=== PATIENT | female | born 1945 | race Caucasian/White ===

== ENCOUNTER 2019-12-01 10:43 | Emergency (ER) | payer MEDICARE ==
[2019-12-01 11:06] VITALS: TEMP 97.9
[2019-12-01 12:04] LABS: Basophils # (A) 0.1 k/uL (0-0.2); Basophils % (A) 1 %; Eosinophils # (A) 0.1 k/uL (0-0.7); Eosinophils % (A) 2 %; HGB 13.8 gm/dL (11.4-16.0); Lymphocytes # (A) 1.3 k/uL (1.0-4.8); Lymphocytes % (A) 18 %; MCH 28.1 pg (25.0-35.0); MCV 87.9 fL (80.0-100.0); Mean Platelet Volume 8.2; Monocytes # (A) 0.4 k/uL (0-1.0); Monocytes % (A) 6 %; Neutrophils # (A) 5.1 k/uL (1.3-7.7); Neutrophils % (A) 72 %; Platelet Count 230 k/uL (150-450); RBC 4.89 m/uL (3.80-5.40); RDW 13.2 % (11.5-15.5); WBC 7.1 k/uL (3.8-10.6)
--- NOTE | 2019-12-01 12:07 | XR ---
EXAMINATION TYPE: XR chest 1V DATE OF EXAM: 12/01/2019 COMPARISON: NONE HISTORY: Cough and congestion TECHNIQUE: Single frontal view of the chest is obtained. FINDINGS: There is interstitial prominence throughout. Pulmonary hyperinflation likely on the basis of underlying COPD. Cardiomediastinal silhouette is upper limits of normal size. Diffuse osseous kinsey neralization. No pneumothorax or sizable pleural effusion. IMPRESSION: Diffuse interstitial prominence that can be on the basis of atypical pneumonia, bronchit is or less likely fluid overload. Underlying COPD suspected.
[2019-12-01 12:14] LABS: Calcium 9.6 mg/dL (8.4-10.2); Potassium 4.5 mmol/L (3.5-5.1); Total Bilirubin 0.5 mg/dL (0.2-1.3); Total Protein 7.2 g/dL (6.3-8.2)
--- NOTE | 2019-12-01 12:15 | ED ---
SOB HPI - General Chief Complaint: Shortness of Breath Stated Complaint: SOB Time Seen by Provider: 12/01/19 11:20 Source: patient Mode of arrival: ambulatory Limitations: no limitations - History of Present Illness Initial Comments: 74-year-old female presenting for cough shortness of breath. Patient states she has felt like she has a chest cold for the past few days. Patient was concerned that she had contracted Cvid 19 she states she has no known exposures. Patient denies hemoptysis, leg swelling, recent travel, recent surgeries, hormone use, history of cancer, DVT/PE. Patient denies chest pressure, chest pain, pain with deep inspiration. Patient denies sore throat, fevers, vomiting, diarrhea, abdominal pain. Denies history of HTN, DM. Lifelong nonsmokers. Patient denies HLD. Patient has no other complaints. Upon arrival she appears well in no distress. - Related Data Previous Rx's Medication Instructions Recorded Azithromycin [Zithromax Z-pack] 0 mg PO DIRECTED #6 tab 12/01/19 Allergies Allergy/AdvReac Type Severity Reaction Status Date / Time nickel Allergy Rash/Hives Verified 12/01/19 11:06 Sulfa (Sulfonamide Allergy Rash/Hives Verified 12/01/19 11:06 Antibiotics) Review of Systems ROS Statement: Those systems with pertinent positive or pertinent negative responses have been documented in the HPI. ROS Other: All systems not noted in ROS Statement are negative. Past Medical History Past Medical History: No Reported History History of Any Multi-Drug Resistant Organisms: None Reported Additional Past Surgical History / Comment(s): cataracts Past Psychological History: No Psychological Hx Reported Smoking Status: Never smoker Past Alcohol Use History: None Reported Past Drug Use History: None Reported General Exam - General Exam Comments Initial Comments: General: The patient is awake and alert, in no distress Eye: +3 mm pupils are equal, round and reactive to light, extra-ocular movements are intact. No nystagmus. There is normal conjunctiva bilaterally. No signs of icterus. No photophobia Ears, nose, mouth and throat: There are moist mucous membranes and no oral lesions.No anterior cervical lymphadenopathy. Rhinorrhea, clear and bilateral nares. No tripoding, no drooling. Neck: The neck is supple, there is no tenderness or JVD. No nuchal rigidity Cardiovascular: There is a regular rate and rhythm. No murmur, rub or gallop is appreciated. Respiratory: Lungs are clear to auscultation, respirations are non-labored, breath sounds are equal. No wheezes, stridor, rales, or rhonchi. No retractions or abdominal breathing. Gastrointestinal: Soft, non-distended, non-tender abdomen without masses or organomegaly noted. There is no rebound or guarding present. Bowel sounds are unremarkable. Musculoskeletal: Normal ROM, no tenderness. Strength 5/5. Sensation intact. Radial pulses equal bilaterally 2+. Neurological: A&O x 3. CN II-XII intact grossly, There are no obvious motor or sensory deficits. Coordination appears grossly intact. Speech appears normal, no muffling. Skin: Skin is warm and dry and no rashes or lesions are noted. No extremity edema Psychiatric: Cooperative Limitations: no limitations Course Vital Signs 12/01/19 12/01/19 12/01/19 11:03 12:00 13:00 Temperature 97.9 F Pulse Rate 100 81 79 Respiratory 18 17 16 Rate Blood Pressure 154/68 129/68 123/64 O2 Sat by Pulse 99 97 97 Oximetry Medical Decision Making - Medical Decision Making 74yo female presenting today for cc of shortness of breath, cough. CXR reveals findings consistent with possible developing atypical pneumonia. BNP within acceptable limits. No extremity findings. Patient appears well there is no signs of acute distress. Patient denies chest pain. Oxygenating well on room air. EKG nonspecific findings reviewed with attending. At this time after discussing case with Dr. Medina--reviewing VS, EKG, labs, history we feel patient is stable for discharge with PCP f/u and strict return parameters. Patient is agreeable and prefers discharge will be discharged with azithromycin. Discussed self isolation as we cannot rule out Covid 19 infection. - Lab Data Result diagrams: 12/01/19 11:45 12/01/19 11:45 Lab Results 12/01/19 12/01/19 12/01/19 Range/Units 11:45 11:45 11:45 WBC 7.1 (3.8-10.6) k/uL RBC 4.89 (3.80-5.40) m/uL Hgb 13.8 (11.4-16.0) gm/dL Hct 43.0 (34.0-46.0) % MCV 87.9 (80.0-100.0) fL MCH 28.1 (25.0-35.0) pg MCHC 32.0 (31.0-37.0) g/dL RDW 13.2 (11.5-15.5) % Plt Count 230 (150-450) k/uL Neutrophils % 72 % Lymphocytes % 18 % Monocytes % 6 % Eosinophils % 2 % Basophils % 1 % Neutrophils # 5.1 (1.3-7.7) k/uL Lymphocytes # 1.3 (1.0-4.8) k/uL Monocytes # 0.4 (0-1.0) k/uL Eosinophils # 0.1 (0-0.7) k/uL Basophils # 0.1 (0-0.2) k/uL Sodium 138 (137-145) mmol/L Potassium 4.5 (3.5-5.1) mmol/L Chloride 107 (98-107) mmol/L Carbon Dioxide 23 (22-30) mmol/L Anion Gap 8 mmol/L BUN 15 (7-17) mg/dL Creatinine 0.75 (0.52-1.04) mg/dL Est GFR (CKD-EPI)AfAm 90 (>60 ml/min/1.73 sqM) Est GFR (CKD-EPI)NonAf 78 (>60 ml/min/1.73 sqM) Glucose 103 H (74-99) mg/dL Plasma Lactic Acid Thierry 1.0 (0.7-2.0) mmol/L Calcium 9.6 (8.4-10.2) mg/dL Total Bilirubin 0.5 (0.2-1.3) mg/dL AST 29 (14-36) U/L ALT 22 (4-34) U/L Alkaline Phosphatase 99 (38-126) U/L NT-Pro-B Natriuret Pep pg/mL Total Protein 7.2 (6.3-8.2) g/dL Albumin 4.0 (3.5-5.0) g/dL 12/01/19 Range/Units 11:45 WBC (3.8-10.6) k/uL RBC (3.80-5.40) m/uL Hgb (11.4-16.0) gm/dL Hct (34.0-46.0) % MCV (80.0-100.0) fL MCH (25.0-35.0) pg MCHC (31.0-37.0) g/dL RDW (11.5-15.5) % Plt Count (150-450) k/uL Neutrophils % % Lymphocytes % % Monocytes % % Eosinophils % % Basophils % % Neutrophils # (1.3-7.7) k/uL Lymphocytes # (1.0-4.8) k/uL Monocytes # (0-1.0) k/uL Eosinophils # (0-0.7) k/uL Basophils # (0-0.2) k/uL Sodium (137-145) mmol/L Potassium (3.5-5.1) mmol/L Chloride (98-107) mmol/L Carbon Dioxide (22-30) mmol/L Anion Gap mmol/L BUN (7-17) mg/dL Creatinine (0.52-1.04) mg/dL Est GFR (CKD-EPI)AfAm (>60 ml/min/1.73 sqM) Est GFR (CKD-EPI)NonAf (>60 ml/min/1.73 sqM) Glucose (74-99) mg/dL Plasma Lactic Acid Thierry (0.7-2.0) mmol/L Calcium (8.4-10.2) mg/dL Total Bilirubin (0.2-1.3) mg/dL AST (14-36) U/L ALT (4-34) U/L Alkaline Phosphatase (38-126) U/L NT-Pro-B Natriuret Pep 424 pg/mL Total Protein (6.3-8.2) g/dL Albumin (3.5-5.0) g/dL - EKG Data EKG Comments: Ventricular rate 90 bpm, OR interval 142 ms, QRS laceration 82 ms, QT/QTC 390/477 ms. This is normal sinus. There issignificant ST elevation or depression there is nonspecific T wave changes. EKG personally reviewd with attending provider. Disposition Clinical Impression: Cough, SOB (shortness of breath), Pneumonia Disposition: HOME SELF-CARE Condition: Good Instructions (If sedation given, give patient instructions): Viral Pneumonia (ED) Additional Instructions: Please use medication as discussed. Please follow-up with family doctor in the next 2 days, SELF ISOLATION FOR THE NEXT 14 days. Please return to emergency room if the symptoms increase or worsen or for any other concerns-immediate return for increasing SOB. Prescriptions: Azithromycin [Zithromax Z-pack] 0 mg PO DIRECTED #6 tab Is patient prescribed a controlled substance at d/c from ED?: No Referrals: Teena Astorga MD [Primary Care Provider] - 1-2 days Time of Disposition: 13:34
[2019-12-01 13:05] VITALS: BP 123/64; PULSE 79; RESP 16
== END 2019-12-01 13:58 | disposition home or self-care (01) ==
LOC: EC 10:43
DX: J18.9 Pneumonia, unspecified organism (principal); Z88.2 Allergy status to sulfonamides; Z91.048 Other nonmedicinal substance allergy status; Z20.828 Contact with and (suspected) exposure to other viral communicable diseases
CPT/HCPCS: 36415; 71045; 80053; 83605; 83880; 85025; 87040; 93005; 99285

== ENCOUNTER → 2021-11-01 | Outpatient (CLI) | payer MEDICARE ==
--- NOTE | 2021-11-01 10:03 | CT ---
EXAMINATION TYPE: CT urogram wo/w con DATE OF EXAM: 11/01/2021 INDICATION: neoplasm of rt ureter CT DLP: 1049.0 mGy.cm Automated Exposure Control for Dose Reduction was Utilized. TECHNIQUE AND CONTRAST: CT scan of the abdomen and pelvis is performed without and with IV Contrast, patient injected with 10 0mL mL of Isovue 300. 3-D urogram reconstructed images were performed on a separate workstation and r eviewed. COMPARISON: None available FINDINGS: 2 tiny adjacent nonobstructing calculi at the lower pole of the right kidney each measuring 2 mm. The left kidney demonstrates multiple variable sized nonobstructing calculi seen at the upper, mid and l ower poles, measuring up to 3 mm at the upper pole and 3 mm at the lower pole. No definite radiodense ureteric or urinary bladder calculi. Scattered bilateral renal cysts without suspicious feature mirian uring up to 4.4 cm at the upper pole of right kidney. Mild wall thickening of the proximal portion of the right ureter extending for about 15 mm which coul d be related to the known right ureteric neoplasm. No measurable lesion identified otherwise. There i s mild fullness of the right renal collecting system. The inferior aspect of the left ureter is not o pacified in the urogram images. No other definite filling defects are seen within the renal collectin g system or the opacified portions of the ureters. Grossly unremarkable urinary bladder. Unremarkable liver, gallbladder, spleen, pancreas and adrenals. Scattered arterial atherosclerotic ca lcifications. Unremarkable IVC. Unremarkable stomach, duodenum and small bowel. Scattered uncomplicat ed colonic diverticulosis most evident involving the sigmoid colon. Normal appendix. Small uterus wit h tiny calcification and 7 mm endometrial thickness, please correlate with pelvic ultrasound results. No gross adnexal mass. No suspicious lymphadenopathy or sizable ascites. Bilateral basal pulmonary p eripheral reticulations and subsegmental atelectasis. Osteopenia. No aggressive bone lesion. Severe d egenerative changes of the right hip joint. Degenerative changes of the lumbar spine. IMPRESSION: Bilateral subcentimeter renal calculi and simple renal cysts as described above. Mild wall thickening of the proximal portion of the right ureter, nonspecific and could be related to the known right ure teric neoplasm. No measurable ureteric lesion identified. Mild fullness of the right renal collecting system, probably secondary to the right ureteric wall thickening. Recommend correlation with urinaly sis results including cytology. Other incidental findings as described above.
== END | disposition home or self-care (01) ==
LOC: RADCTMAIN 07:51
PROVIDERS: ATTEND Urology
DX: N20.0 Calculus of kidney (principal); N28.1 Cyst of kidney, acquired; N28.89 Other specified disorders of kidney and ureter
CPT/HCPCS: 82565; 84520; 74178; 36415; 74400; Q9967

== ENCOUNTER → 2022-07-06 | Outpatient (CLI) | payer MEDICARE ==
[2022-07-06 17:28] LABS: INR 0.9 (<1.2); Partial Thromboplastin Time 23.6 sec (22.0-30.0); Prothrombin Time 10.3 sec (9.0-12.0)
[2022-07-06 22:31] LABS: HCT 40.8 % (37.2-46.3); MCH 28.1 pg (27.0-32.0); MCHC 31.9 g/dL (32.0-37.0); MCV 88.3 fL (80.0-97.0); Mean Platelet Volume 10.6 fL (9.5-12.2); NRBC Per 100 WBC 0 /100 WBCS (0.0-0.0); Platelet Count 263 X 10*3/uL (140-440); RBC 4.62 X 10*6/uL (4.10-5.20); RDW 13.5 % (11.5-14.5); WBC 6.95 X 10*3/uL (4.50-10.00)
[2022-07-06 22:53] LABS: African American GFR (CKD) 73.1 (60.0-200.0); Albumin/Globulin Ratio 1.52 (1.60-3.17); Anion Gap 9.5 mmol/L (10.00-18.00); BUN/Creat Ratio 13.4 Ratio (12.00-20.00); Blood Urea Nitrogen 11.7 mg/dL (9.0-27.0); Calcium 9.4 mg/dL (8.7-10.3); Carbon Dioxide 25.7 mmol/L (20.0-27.5); Globulin 2.7 g/dL (1.6-3.3); Non-African American GFR(CKD) 63.1 (60.0-200.0); Potassium 4.4 mmol/L (3.5-5.5); Total Bilirubin 0.4 mg/dL (0.30-1.20); Total Protein 6.7 g/dL (6.2-8.2)
[2022-07-07 00:28] LABS: Appearance,Urine Clear (Clear); Bilirubin,Urine Negative (Negative); Blood,Urine Negative (Negative); Color,Urine Yellow (Yellow); Ketones,Urine Negative (Negative); Nitrite,Urine Negative (Negative)
[2022-07-07 00:32] LABS: Bacteria,Urine None Seen /HPF (None Seen)
== END | disposition home or self-care (01) ==
LOC: LABPAT 14:54
PROVIDERS: ATTEND Orthopaedic Surgery
DX: Z01.812 Encounter for preprocedural laboratory examination (principal)
CPT/HCPCS: 80053; 81001; 85027; 85610; 85730; 87070

== ENCOUNTER 2022-07-14 10:44 | Day surgery (SDC) | payer MEDICARE ==
[~2022-07-14 10:44] MED LIST: ACETAMINOPHEN TAB 500 MG TAB PO PRN; DEXAMETHASONE SOD PHOSPHATE 10 MG/ML 1 ML VIAL IV PRN; DOCUSATE 100 MG CAP PO PRN; FAMOTIDINE 20 MG/2 ML VIAL IVP PRN; HYDROmorphone 0.5 MG/0.5 ML SYRINGE IVP PRN; KETOROLAC 15 MG/ML 1 ML VIAL IVP PRN; MIDAZOLAM 2 MG/2 ML VIAL IV PRN; ONDANSETRON 4 MG/2 ML VIAL IVP PRN; TRANEXAMIC ACID IN NACL,ISO-OS 1,000 MG in SALINE 1 100ML.BAG IVPB PRN; oxyCODONE ER 10 MG TAB.ER.12H PO PRN
[2022-07-14] MEDS ORDERED: LIDOCAINE 1% (10MG/ML) FOR IV START INTRADERMA ONE (11:30)
[2022-07-14] MEDS: LACTATED RINGERS 1,000 ML IV SCH ×2 (11:30→17:10)
[2022-07-14] MEDS ORDERED: MIDAZOLAM 2 MG/2 ML VIAL IVP ONE (12:11)
--- NOTE | 2022-07-14 12:55 | P.ANPRN ---
Procedure Note - Anesthesia - Nerve Block Performed Right Erector Spinae Single Time Out Performed: Yes (1210) Date of Procedure: 07/14/22 Procedure Start Time: 12:11 Procedure Stop Time: 12:16 Location of Patient: PreOp Indication: Acute Post-Operative Pain, Requested by Surgeon Specifically requested for management of pain by DrShan: Dutch Dalton Sedation Type: Sedate with meaningful contact maintained Preparation: Sterile Prep Position: Sitting Catheter: None Needle Types: Pajunk Needle Gauge: 21 Ultrasound used to visualize needle placement: Yes Ultrasound used to observe medication spread: Yes Injectate: 0.5% Ropivacaine (see comment for volume) (30cc) Blood Aspirated: No Pain Paresthesia on Injection Noted: No Resistance on Injection: Normal Image Stored and Saved: Yes Events: Uneventful and Well Tolerated
[2022-07-14] MEDS ORDERED: HYDROmorphone (PF) 1 MG/ML ONE (13:01)
[2022-07-14] MEDS ORDERED: PROPOFOL 10 MG/ML 20 ML VIAL IV ONE (13:01)
[2022-07-14] MEDS ORDERED: SUCCINYLCHOLINE CHLORIDE 200 MG/10 ML VIAL IV ONE (13:01)
[2022-07-14] MEDS ORDERED: NEOSTIGMINE 1 MG/ML 10 ML VIAL ONE (13:01)
[2022-07-14] MEDS ORDERED: ePHEDrine 50 MG/ML 1 ML VIAL ONE (13:01)
[2022-07-14] MEDS ORDERED: LIDOCAINE 2% INJ 20 MG/ML (2 ML VIAL) ONE (13:01)
[2022-07-14] MEDS ORDERED: TRANEXAMIC ACID IN NACL,ISO-OS 1,000 MG/100 ML BAG ONE (13:01)
[2022-07-14] MEDS ORDERED: fentaNYL (PF) 50 MCG/ML 2 ML AMP ONE (13:01)
[2022-07-14] MEDS ORDERED: GLYCOPYRROLATE 0.2 MG/ML 2 ML VIAL ONE (13:01)
[2022-07-14] MEDS ORDERED: ROCURONIUM 10 MG/ML (5 ML VIAL) IV ONE (13:01)
[2022-07-14] MEDS ORDERED: ROPIVACAINE 5 MG/ML 30 ML VIAL ONE (13:01)
[2022-07-14] MEDS: ROPIVACAINE 246.25 MG, EPINEPHrine 0.5 MG, KETOROLAC (30 mg/mL) 30 MG, cloNIDine HCL/PF... MISCELLANE PRN ×10 (13:42→14:27)
[2022-07-14] MEDS ORDERED: LACTATED RINGERS 1,000 ML IV ONE (14:59)
--- NOTE | 2022-07-14 15:12 | FL ---
EXAMINATION TYPE: FL guidance operating room DATE OF EXAM: 07/14/2022 HISTORY: Fluoroscopy time 29 seconds of fluoroscopy provided. IMPRESSION: 1. Fluoroscopy time.
--- NOTE | 2022-07-14 15:13 | XR ---
EXAMINATION TYPE: XR Hip Limited RT DATE OF EXAM: 07/14/2022 COMPARISON: NONE HISTORY: Postop TECHNIQUE: 7 limited intraoperative view submitted. FINDINGS: There is postsurgical change in near anatomic alignment. There is soft tissue edema and emphysema. IMPRESSION: 1. Postoperative change. Appears in near-anatomic alignment.
[2022-07-14] MEDS ORDERED: HYDROmorphone 0.5 MG/0.5 ML SYRINGE IVP PRN ×3 (15:31)
[2022-07-14] MEDS ORDERED: hydrOXYzine pamoate 25 MG CAP PO PRN (15:31)
[2022-07-14] MEDS ORDERED: ONDANSETRON 4 MG/2 ML VIAL IVP PRN (15:31)
[2022-07-14] MEDS ORDERED: NALOXONE 0.4 MG/ML 1 ML VIAL IV PRN (15:31)
[2022-07-14] MEDS ORDERED: HYDROcodone/APAP 5-325MG 1 EACH TAB PO PRN (15:31)
--- NOTE | 2022-07-14 15:34 | P.OP ---
Date of Procedure: 07/14/22 Preoperative Diagnosis: 1. Severe right hip osteoarthritis Postoperative Diagnosis: Same Procedure(s) Performed: Right direct anterior total hip arthroplasty Implants: 1. [place] Trident II Acetabular Cup, Size #52 2. Violeta Accolade C Size #5 Femoral Stem, Standard Offset 3. Biolox delta femoral head, 36mm, -5 mm neck Anesthesia: GETA Surgeon: Dutch Dalton [employer] Service Supervisor #1: Rajeev Quijano Estimated Blood Loss (ml): 300 IV fluids (ml): 600 Pathology: none sent (Gross and/or histopathologic evaluation not indicated based on my interpretation of preoperative imaging and intraoperative findings. Findings were consistent with osteoarthritis) Condition: stable Disposition: PACU Indications for Procedure: I had a long discussion with the patient in the office on the potential risks and complications of an elective total hip replacement through a direct anterior approach. Risks discussed include, but are certainly not limited to, risks from anesthesia, superficial infection requiring local wound care or antibiotics, deep christiano-prosthetic joint infection and the treatment required to eradicate infection, intraoperative fracture, postoperative periprosthetic fracture, damage to local blood vessels or nerves particularly the lateral femoral cutaneous nerve, delayed wound healing requiring local wound care or possibly surgical debridement, hip dislocation, leg length discrepancy, soft tissue irritation around the total hip implant such as iliopsoas tendinitis or trochanteric bursitis, wear and osteolysis from the implants, squeaking or audible noises, groin pain, thigh pain, heterotopic ossification, stiffness, aseptic loosening of the implants, dissatisfaction with surgical outcome, need for revision surgery, DVT, PE, swelling of the operative extremity, acute coronary event, stroke, failure to thrive, and possibly loss of life or limb. The patient understands that while these are the most common complications after an elective hip replacement there are certainly other less common complications possible. They were given ample time to ask questions regarding the potential complications of a hip replacement. Following our discussion the patient provided their verbal and written consent to go forward with an elective total hip replacement. Operative Findings: Severe right hip osteoarthritis Description of Procedure: The patient was identified in the preoperative holding area and the correct hip was marked with my initials. I reviewed the procedure and consent with the patient. All of their questions were answered. The patient was then brought back into the operating room by anesthesia. While on the rney anesthesia was administered by the anesthesia team. Preoperative antibiotics and tranexamic acid were also given. After the patient was under anesthesia I examined their ankles to determine their preoperative leg length discrepancy. The skin over the anterior aspect of the hip was shaved to remove hair over the site of planned incision. Both feet and ankles were padded with webril and boots for the [place] were applied. The patient was then carefully transferred onto the [place] table. A perineal post was immediately placed. The arms were placed on arm holders and were well-padded. Both boots were secured to the spars on the [place] table. The patient was positioned so that the pelvis was centered over the post. Nonsterile drapes were applied. A timeout was performed identifying the correct patient, operative extremity, and procedure. At this point fluoroscopy was brought in to take preoperative images of the pelvis and operative hip. Using the standing AP pelvis from the office as a template, a comparable image was obtained with fluoroscopy. A metallic bar was used to create a bi-ischial line for use as a reference to leg length adjustments during the procedure. Global offset was also measured on both the operative and nonoperative leg. Fluoroscopy was then brought out and a pre-scrub using a chlorhexidine scrub brush was performed. The operative limb was then prepped and draped in the standard sterile fashion. An anterior longitudinal incision was made lateral and distal to the ASIS. The skin and subcutaneous tissues were incised sharply. The underlying tensor fascia was identified and incised in its midportion. The fascia was dissected free from the underlying muscle and the muscle belly was retracted. A blunt tipped cobra retractor was placed over the superior neck under the muscle fibers of the gluteus minimus. The deep enveloping fascia of the tensor was incised. The anterior leash of vessels were then identified and cauterized. The fascia between the rectus and the capsule was then incised and the pre-capsular fat was excised. A second Cobra was placed inferior to the neck. The interval between the rectus and iliocapsularis and the hip capsule was developed and a retractor was placed carefully over the anterior rim of the acetabulum. A T-shaped anterior capsulotomy was performed. The superior capsular leaflet was left in place in the inferior capsular flap was excised. The Cobra retractors were placed intracapsularly. We then made a femoral neck osteotomy according to preoperative and intraoperative templating and confirmed the level of the osteotomy using fluoroscopic imaging. The femoral head was removed, passed off to the back table, and sized. The superior capsular flap was excised. Retractors were placed circumferentially exposing the acetabulum. We then circumferentially debrided the acetabulum free of labrum and osteophytes. The pulvinar was removed to fully visualize the cotyloid fossa. We then sequentially reamed to achieve peripheral fit and excellent bleeding subchondral bone. The socket was thoroughly irrigated. The acetabular component was impacted into the appropriate position using fluoroscopy to guide version, inclination, and depth of insertion taking care to have a comparable image of the AP pelvis to the standing image taken in the office. An excellent press-fit was achieved and final position was confirmed using fluoroscopy. The press fit was augmented with bony cancellus dome screws. The liner was then impacted into the socket. Attention was then turned to the femur. The remnant dorsal lateral capsule was excised. The short external rotators were visible and protected. A bone hook was used to confirm appropriate translation of the trochanter away from the acetabulum. The leg was then extended and adducted and the bone hook was used to elevate the femur for broaching. On inspection of the patient's proximal femur, they appeared to have poor bone quality so I elected to proceed with cemented fixation of the femoral component. A box osteotome and blunt tipped canal sound was then utilized to gain access to the femoral canal. We then sequentially broached the femur in appropriate anteversion until torsional stability was achieved and the implant was felt to have reached the appropriate size to allow trialing. The neck cut was brought flush to the trial broach with a calcar planar. A trial neck and head were then placed onto the broach and the hip was atraumatically reduced under direct visualization. External rotation to 90 was performed to assess stability. Fluoroscopy was brought in. An AP and lateral fluoroscopic image of the proximal femur was obtained to assess position and fill of the trial broach. An AP of the pelvis was then obtained and matched to the preoperative image taken. A bi-ischial bar was then placed and measurements were taken to assess changes in length and offset. The hip was then carefully dislocated, the proximal femur was exposed, and the trial implants were removed. The proximal femur was then prepared for cementing. The canal was thoroughly irrigated with pulsatile lavage to remove blood and marrow contents. A cement restrictor was placed to a depth just distal to the tip of the final implant. Epinephrine-soaked gauze was then packed into the proximal femur. 2 bags of cement were then mixed using a centrifuge and placed into a cement gun. Anesthesia was notified that cementing was about to commence to make sure the patient was appropriately ventilated and hydrated. Once the cement had reached appropriate consistency, the cement gun was used to fill the canal in a retrograde fashion starting at the restrictor. Cement was then pressurized into the canal with a blue tipped education associate. The stem was then carefully introduced into the cement taking care to guide the implant into appro priate version. The stem was held in position until the cement had fully set. All extra cement was removed while the cement was hardening. The trunnion was cleansed and the final head was tapped into place to engage the Gaspar taper. The acetabulum was irrigated and visualized to be free of debris. The hip was carefully reduced. Stability was checked clinically with external rotation to 90 and there was no evidence of instability. Final fluoroscopic images were taken. The wound was then thoroughly irrigated and soaked with a dilute Betadine rinse for 3 minutes. 3 L of sterile saline was irrigated through the wound using pulsatile lavage. Local anesthetic cocktail was injected into the soft tissues around the surgical field. A deep drain was placed. The wound was then closed in layers. A sterile dressing was placed over the surgical incision and drain site. The drapes were taken down and the patient was carefully transferred off of the [place] table. Following removal of the boots the leg lengths felt acceptable. The patient was then taken to recovery room having tolerated the procedure well. Rajeev Quijano PA-C was required as a skilled administration assistant for patient positioning, surgical exposure, retraction, placement of implants, and closure of the surgical wound. PLAN: The patient can weight-bear as tolerated on the operative extremity. 2 doses of postoperative antibiotics. DVT prophylaxis with aspirin 81 mg twice a day based on preoperative risk stratification. Physical therapy for gait training. Discontinue drain postoperative day #1 if output is less than 100 mL per shift.
[2022-07-14] MEDS: ASPIRIN 81 MG PO SCH (21:45)
[2022-07-14] MEDS: SENNOSIDES-DOCUSATE SODIUM 1 EACH TAB PO SCH (21:45)
[2022-07-15] MEDS: LACTATED RINGERS 1,000 ML IV SCH ×4 (01:54→22:17)
[2022-07-15] MEDS: HYDROcodone/APAP 5-325MG 1 EACH TAB PO PRN ×3 (04:08→21:24)
[2022-07-15] MEDS: ASPIRIN 81 MG PO SCH ×2 (08:25→21:24)
--- NOTE | 2022-07-15 08:53 | P.PN ---
Subjective Progress Note Date: 07/15/22 Overall the patient is doing well this morning. She has minimal discomfort in her hip but is complaining of some low back and posterior buttock pain. She states that she had a difficult time sleeping last night. She denies chest pain or shortness of breath. She is otherwise doing well. Objective - Vital Signs Vital signs: Vital Signs Temp 98.6 F 07/15/22 08:00 Pulse 81 07/15/22 08:00 Resp 16 07/15/22 08:00 BP 108/46 07/15/22 08:00 Pulse Ox 94 L 07/15/22 08:00 FiO2 Intake & Output 07/14/22 07/15/22 07/15/22 18:59 06:59 18:59 Intake Total 1450 Output Total 300 305 Balance 1150 -305 Weight 62.8 kg Intake: IV 1450 Output: Drainage 305 Right Hip 305 Estimated Blood Loss 300 Other: Voiding Method Toilet # Voids 3 - Exam The patient is resting comfortably in bed and is alert and able to answer questions. A focused exam of the right lower extremity was conducted. On inspection there is a clean-appearing dressing over the anterior aspect of the hip with no strikethrough or bleeding. Her Hemovac drain is in place and was removed. There is mild swelling throughout the thigh. Femoral nerve function is intact. Distally motor and sensory function are intact in the foot and ankle. Assessment and Plan Assessment: Postoperative day #1 status post right direct anterior total hip arthroplasty Plan: 1. Weightbearing as tolerated right lower extremity, up with assistance and walker 2. Mobilize out of bed 3. DVT prophylaxis with aspirin 81 mg twice a day 4. Physical therapy 5. Dispo: If she does well with physical therapy and her pain is controlled she can discharge home today. If needed she can stay another night for continued therapy, pain control and discharge planning
[2022-07-15 09:54] LABS: Basophils # (A) 0.01 X 10*3/uL (0.00-0.10); Basophils % (A) 0.1 %; Eosinophils # (A) 0 X 10*3/uL (0.04-0.35); Eosinophils % (A) 0 %; HGB 9.3 g/dL (12.0-15.0); Immature Grans, Automated 0.4 %; Lymphocytes # (A) 1.72 X 10*3/uL (0.90-5.00); Lymphocytes % (A) 13.4 %; MCH 28.1 pg (27.0-32.0); MCHC 32.1 g/dL (32.0-37.0); MCV 87.6 fL (80.0-97.0); Mean Platelet Volume 10.9 fL (9.5-12.2); Monocytes # (A) 1.17 X 10*3/uL (0.20-1.00); Monocytes % (A) 9.1 %; NRBC Per 100 WBC 0 /100 WBCS (0.0-0.0); Neutrophils # (A) 9.85 X 10*3/uL (1.80-7.70); Platelet Count 190 X 10*3/uL (140-440); RBC 3.31 X 10*6/uL (4.10-5.20); RDW 13.2 % (11.5-14.5)
--- NOTE | 2022-07-15 14:56 | P.CONS ---
History of Present Illness - Reason for Consult Consult date: 07/15/22 - History of Present Illness This is a pleasant 77 year old female who presents for elevated right hip total hip arthroplasty. She is evaluated today postoperative day #1 on medical floor. Patient reports no shortness of breath, no chest pain, tolerating diet. Passing some gas, no BM. At rest reports no pain. Patient states she had ambulated today with physical therapy and reports pain a 5/10 which she is receiving oral pain medication. Postoperative labs showing white count of 12.80 which is reactive secondary to surgery, hgb 9.3. Patient follows with Dr. Astorga outpatient, medical history of osteoarthritis, kidney stones, herniated disc in back. Never smoker. PT has evaluated patient and they are recommending home with homecare services. Patient reports feeling fatigued today. For this reason primary has considered monitoring overnight with discharge home tomorrow vs. discharge home later today. Patient would like to go home today. REVIEW OF SYSTEMS: CONSTITUTIONAL: No fever, no malaise, no fatigue. HEENT: No recent visual problems or hearing problems. Denied any sore throat. CARDIOVASCULAR: No chest pain, orthopnea, PND, no palpitations, no syncope. PULMONARY: No shortness of breath, no cough, no hemoptysis. GASTROINTESTINAL: No diarrhea, no nausea, no vomiting, no abdominal pain. NEUROLOGICAL: No headaches, no weakness, no numbness. HEMATOLOGICAL: Denies any bleeding or petechiae. GENITOURINARY: Denies any burning micturition, frequency, or urgency. MUSCULOSKELETAL/RHEUMATOLOGICAL: Denies any joint pain, swelling, or any muscle pain. ENDOCRINE: Denies any polyuria or polydipsia. The rest of the 14-point review of systems is negative. PHYSICAL EXAMINATION: GENERAL: The patient is alert and oriented x3, not in any acute distress. Well developed, well nourished. HEENT: Pupils are round and equally reacting to light. EOMI. No scleral icterus. No conjunctival pallor. Normocephalic, atraumatic. No pharyngeal erythema. No thyromegaly. CARDIOVASCULAR: S1 and S2 present. No murmurs, rubs, or gallops. PULMONARY: Chest is clear to auscultation, no wheezing or crackles. ABDOMEN: Soft, nontender, nondistended, normoactive bowel sounds. No palpable organomegaly. MUSCULOSKELETAL: No joint swelling or deformity. EXTREMITIES: No cyanosis, clubbing, or pedal edema. Postoperative right hip dressing intact +2 pedal pulses NEUROLOGICAL: Gross neurological examination did not reveal any focal deficits. SKIN: No rashes. Assessment and Plan Assessment Osteoarthritis postoperative day #1 right hip total arthroplasty History kidney stones History herniated disc in back Postoperative anemia with monitoring, no signs for active bleeding GI prophylaxis DVT prophylaxis as per primary Full Code Plan Continue with pain management Continue to encourage incentive spirometer Continue with PPI and bowel regimen Medically she can be cleared for discharge if okay with primary Recommend outpatient follow up with PCP in 1 to 2 days and also repeat CBC Patient will discharge home with homecare in place. Thank you for this consultation The impression and plan of care has been dictated by Aide Clark Nurse Practitioner as directed. Dr. Johnny MD I have performed a history and physical examination and medical decision making of this patient, discussed the same with the dictator, and agree with the dictators assessment and plan as written, documented as a scribe. Based on total visit time, I have performed more than 50% of this visit. Past Medical History Past Medical History: Osteoarthritis (OA) Additional Past Medical History / Comment(s): kidney stones, past hx. herniated disc which caused right calf muscle to atrophy History of Any Multi-Drug Resistant Organisms: None Reported Additional Past Surgical History / Comment(s): cataracts removed Past Anesthesia/Blood Transfusion Reactions: No Reported Reaction Past Psychological History: No Psychological Hx Reported Smoking Status: Never smoker Past Alcohol Use History: Rare Past Drug Use History: None Reported - Past Family History Mother Family Medical History: No Reported History Medications and Allergies Home Medications Medication Instructions Recorded Confirmed Type Methylsulfonylmethane [MSM] 900 mg PO DAILY 07/11/22 07/11/22 History Turmeric Root Extract [Turmeric] 500 mg PO DAILY 07/11/22 07/11/22 History Xanthan 1 tab PO DAILY 07/11/22 07/11/22 History Aspirin 81 mg PO BID 30 Days #60 tab 07/14/22 Rx Diclofenac Sodium [Voltaren] 75 mg PO BID 30 Days #60 tab 07/14/22 Rx Docusate [Colace] 100 mg PO BID #60 capsule 07/14/22 Rx HYDROcodone/APAP 5-325MG [Superior 1 - 2 tab PO Q6HR PRN 7 Days #32 07/14/22 Rx 5-325] tab Omeprazole 40 mg PO DAILY 30 Days #30 cap 07/14/22 Rx Allergies Allergy/AdvReac Type Severity Reaction Status Date / Time nickel Allergy Rash/Hives Verified 07/11/22 12:41 Sulfa (Sulfonamide Allergy Rash/Hives Verified 07/11/22 12:41 Antibiotics) Physical Exam Vitals: Vital Signs Temp Pulse Pulse Resp BP BP Pulse Ox 07/15/22 08:00 98.6 F 81 16 108/46 94 L 07/15/22 02:00 98.2 F 85 16 90/44 97 07/14/22 20:00 98.5 F 77 16 146/70 93 L 07/14/22 16:12 80 16 105/51 100 07/14/22 15:57 78 16 118/60 100 07/14/22 15:42 75 16 122/59 98 07/14/22 15:27 98.6 F 86 16 120/60 96 07/14/22 12:35 77 14 116/55 98 07/14/22 11:55 136/63 Intake and Output 07/14/22 07/15/22 07/15/22 22:59 06:59 14:59 Intake Total 200 Output Total 75 230 Balance 125 -230 Intake: IV 200 Output: Drainage 75 230 Right Hip 75 230 Other: Voiding Method Toilet # Voids 3 Weight 62.8 kg Results CBC & Chem 7: 07/15/22 06:06 Labs: Abnormal Lab Results - Last 24 Hours (Table) 07/15/22 Range/Units 06:06 WBC 12.80 H (4.50-10.00) X 10*3/uL RBC 3.31 L (4.10-5.20) X 10*6/uL Hgb 9.3 L (12.0-15.0) g/dL Hct 29.0 L (37.2-46.3) % Immature Gran # 0.05 H (0.00-0.04) X 10*3/uL Neutrophils # 9.85 H (1.80-7.70) X 10*3/uL Monocytes # 1.17 H (0.20-1.00) X 10*3/uL Eosinophils # 0 L (0.04-0.35) X 10*3/uL Assessment and Plan Time with Patient: Less than 30
[2022-07-15] MEDS: SENNOSIDES-DOCUSATE SODIUM 1 EACH TAB PO SCH (21:24)
[2022-07-16 02:26] VITALS: RESP 16
[2022-07-16] MEDS: LACTATED RINGERS 1,000 ML IV SCH ×3 (06:29→08:53)
[2022-07-16] MEDS: ASPIRIN 81 MG PO SCH (07:36)
[2022-07-16 07:45] VITALS: BP 153/62; PULSE 96; TEMP 97.8
[2022-07-16 10:18] LABS: African American GFR (CKD) 97.7 (60.0-200.0); Anion Gap 8.6 mmol/L (10.00-18.00); BUN/Creat Ratio 13.51 Ratio (12.00-20.00); Blood Urea Nitrogen 8.8 mg/dL (9.0-27.0); Carbon Dioxide 22.9 mmol/L (20.0-27.5); Non-African American GFR(CKD) 84.3 (60.0-200.0); Potassium 3.9 mmol/L (3.5-5.5)
--- NOTE | 2022-07-16 11:20 | P.DS ---
Providers Expected date of discharge: 07/16/22 Attending physician: Dutch Dalton Consults: 07/14/22 15:31 Consult Physician Routine Consulting Provider: Patel Nunez Consult Reason/Comments: medical management Do you want consulting provider notified?: Yes Primary care physician: Teena Astorga - Discharge Diagnosis(es) (1) Primary osteoarthritis of right hip Current Visit: Yes Status: Acute (2) Status post total hip replacement, right Current Visit: Yes Status: Acute Hospital Course: This is a 77-year-old female with known history of degenerative arthritis of the right hip. The patient presents for evaluation. After discussion and consideration patient elects to proceed with total hip arthroplasty. The patient is seen preoperatively by Dr. Dalton and cleared for surgery. Patient is admitted to [facility] on 07/14/2022 for direct anterior right total hip arthroplasty. The procedures performed without complication or sequelae. The patient is doing well postoperatively. Labs and vital signs are stable on day of discharge. On day of discharge patient's hip incision is healing well. There is minimal erythema. There is no drainage noted at this time. There is minimal soft tissue swelling to the hip and thigh. Patient has full foot and ankle motion without difficulty or pain. Neurovascular status to the right lower extremity is intact. Patient is discharged to home in stable condition. Pertinent Studies: Laboratory Tests 07/15/22 06:06 WBC 12.80 H RBC 3.31 L Hgb 9.3 L Hct 29.0 L Patient Condition at Discharge: Stable Plan - Discharge Summary Discharge Rx Participant: Yes New Discharge Prescriptions: New Aspirin 81 mg PO BID 30 Days #60 tab Omeprazole 40 mg PO DAILY 30 Days #30 cap Diclofenac Sodium [Voltaren] 75 mg PO BID 30 Days #60 tab Docusate [Colace] 100 mg PO BID #60 capsule HYDROcodone/APAP 5-325MG [Fay 5] 1 - 2 each PO Q4-6H PRN #32 tab PRN Reason: Pain No Action Methylsulfonylmethane [MSM] 900 mg PO DAILY Xanthan 1 tab PO DAILY Turmeric Root Extract [Turmeric] 500 mg PO DAILY Discharge Medication List Methylsulfonylmethane [MSM] 900 mg PO DAILY 07/11/22 [History] Turmeric Root Extract [Turmeric] 500 mg PO DAILY 07/11/22 [History] Xanthan 1 tab PO DAILY 07/11/22 [History] Aspirin 81 mg PO BID 30 Days #60 tab 07/14/22 [Rx] Diclofenac Sodium [Voltaren] 75 mg PO BID 30 Days #60 tab 07/14/22 [Rx] Docusate [Colace] 100 mg PO BID #60 capsule 07/14/22 [Rx] Omeprazole 40 mg PO DAILY 30 Days #30 cap 07/14/22 [Rx] HYDROcodone/APAP 5-325MG [Fay 5] 1 - 2 each PO Q4-6H PRN #32 tab 07/16/22 [Rx] Follow up Appointment(s)/Referral(s): Teena Astorga MD [Primary Care Provider] - 1-2 Days (office closed at time of discharge. Please call Sunday to schedule appointment) [facility] [place] [NON-STAFF] - 1-2 Days Dutch Dalton MD [Medical Doctor] - 2 Weeks (Office closed at time of Discharge. Please call Sunday to schedule appointment) Ambulatory/Diagnostic Orders: Complete Blood Count w/diff [LAB.AMB] Time Frame: 3 Days, Location: None Selected Activity/Diet/Wound Care/Special Instructions: Weight bear to tolerance on operative extremity with a walker. Keep operative dressing intact until follow-up appointment in the office. Call the office if dressing becomes saturated or falls off. May shower over dressing. Take pain medications as prescribed. Take aspirin 81mg BID x 4 weeks for blood clot prevention. Follow-up in the office in two weeks at [facility]. Call the office with any questions or concerns, . Discharge Disposition: HOME WITH HOME HEALTH SERVICES
--- NOTE | 2022-07-16 12:34 | P.PN ---
Subjective Progress Note Date: 07/16/22 This is a pleasant 77 year old female who presents for elevated right hip total hip arthroplasty. She is evaluated today postoperative day #1 on medical floor. Patient reports no shortness of breath, no chest pain, tolerating diet. Passing some gas, no BM. At rest reports no pain. Patient states she had ambulated today with physical therapy and reports pain a 5/10 which she is receiving oral pain medication. Postoperative labs showing white count of 12.80 which is reactive secondary to surgery, hgb 9.3. Patient follows with Dr. Astorga outpatient, medical history of osteoarthritis, kidney stones, herniated disc in back. Never smoker. PT has evaluated patient and they are recommending home with homecare services. Patient reports feeling fatigued today. For this reason primary has considered monitoring overnight with discharge home tomorrow vs. discharge home later today. Patient would like to go home today. 07/16/2022 Patient is evaluated today sitting up in bed. Reports pain has improved. No shortness of breath. No acute events overnight. Tolerating diet. She is passing gas, no BM reported yet. Patient would like to discharge home and she has been cleared by orthopedics today. Postoperative day #2 right hip total arthroplasty. Review of Systems Constitutional: Denied any fatigue denied any fever. Cardio vascular: denied any chest pain, palpitations Gastrointestinal: denied any nausea, vomiting, diarrhea Pulmonary: Denied any shortness of breath cough Neurologic denied any new focal deficits All inpatient medications were reviewed and appropriate changes in these medications as dictated in the interval history and assessment and plan. PHYSICAL EXAMINATION: GENERAL: The patient is alert and oriented x3, not in any acute distress. Well developed, well nourished. HEENT: Pupils are round and equally reacting to light. EOMI. No scleral icterus. No conjunctival pallor. Normocephalic, atraumatic. No pharyngeal erythema. No thyromegaly. CARDIOVASCULAR: S1 and S2 present. No murmurs, rubs, or gallops. PULMONARY: Chest is clear to auscultation, no wheezing or crackles. ABDOMEN: Soft, nontender, nondistended, normoactive bowel sounds. No palpable organomegaly. MUSCULOSKELETAL: No joint swelling or deformity. EXTREMITIES: No cyanosis, clubbing, or pedal edema. Postoperative right hip dressing intact +2 pedal pulses NEUROLOGICAL: Gross neurological examination did not reveal any focal deficits. SKIN: No rashes. Assessment and Plan Assessment Osteoarthritis postoperative day #2 right hip total arthroplasty History kidney stones History herniated disc in back Postoperative anemia with monitoring, no signs for active bleeding GI prophylaxis DVT prophylaxis as per primary Full Code Plan Continue with pain management Continue to encourage incentive spirometer Continue with PPI and bowel regimen Medically she can be cleared for discharge if okay with primary Recommend outpatient follow up with PCP in 1 to 2 days and also repeat CBC Patient will discharge home with homecare in place. Thank you for this consultation The impression and plan of care has been dictated by Aide Clark, Nurse Practitioner as directed. Dr. Johnny MD I have performed a history and physical examination and medical decision making of this patient, discussed the same with the dictator, and agree with the dictators assessment and plan as written, documented as a scribe. Based on total visit time, I have performed more than 50% of this visit. Objective - Vital Signs Vital signs: Vital Signs Temp 97.8 F 07/16/22 07:44 Pulse 96 07/16/22 07:44 Resp 16 07/16/22 07:44 BP 153/62 07/16/22 07:44 Pulse Ox 93 L 07/16/22 07:44 FiO2 Intake & Output 07/15/22 07/16/22 07/16/22 18:59 06:59 18:59 Other: Voiding Method Toilet # Voids 2 3 - Labs CBC & Chem 7: 07/15/22 06:06 07/16/22 07:14 Labs: Abnormal Lab Results - Last 24 Hours (Table) 07/16/22 Range/Units 07:14 Anion Gap 8.60 L (10.00-18.00) mmol/L BUN 8.8 L (9.0-27.0) mg/dL Glucose 123 H (70-110) mg/dL Calcium 8.0 L (8.7-10.3) mg/dL Assessment and Plan Time with Patient: Less than 30
== END 2022-07-16 12:59 | disposition home health service (06) ==
LOC: OR 10:44 → 4SSUR 15:17 → OR 07-16 12:59
PROVIDERS: ATTEND Orthopaedic Surgery
DX: M16.11 Unilateral primary osteoarthritis, right hip (principal); G89.18 Other acute postprocedural pain; M25.751 Osteophyte, right hip; Z97.3 Presence of spectacles and contact lenses; Z86.59 Personal history of other mental and behavioral disorders; Z79.899 Other long term (current) drug therapy
CPT/HCPCS: 97162; 86900; 86901; 80048; 85025; 86850; 73501; 27130; 64999; J2250; J0171; J1100; J0690 ×2; J2405; J1885 ×2; J2795; J0735; 64461